=== PATIENT | male | born 2000 | race African-American/Black ===

== ENCOUNTER 2025-03-26 16:34 | Emergency (ER) | payer SELFPAY ==
[2025-03-26 16:48] VITALS: BP 129/80; PULSE 87; RESP 18; TEMP 98.4; BMI 28.0
[2025-03-26] MEDS ORDERED: ALBUTEROL SO4 2.5/IPRATROPIUM 0.5 INH SOL 3 ML VIAL.NEB. NEB ONE (17:22)
[2025-03-26] MEDS ORDERED: DEXAMETHASONE SOD PHOSPHATE 10 MG/1 ML VIAL ONE (17:22)
[2025-03-26] MEDS ORDERED: ACETAMINOPHEN 500 MG TABLET (FP) ONE (17:25)
[2025-03-26] MEDS: DEXAMETHASONE SOD PHOSPHATE 10 MG/1 ML VIAL PO ONE (17:29)
[2025-03-26] MEDS: ALBUTEROL SO4 2.5/IPRATROPIUM 0.5 INH SOL 3 ML VIAL.NEB. NEB ONE (17:30)
[2025-03-26] MEDS: ACETAMINOPHEN 500 MG TABLET (FP) PO ONE (17:30)
== END 2025-03-26 18:23 | disposition home or self-care (01) ==
LOC: JERFT 16:34
PROC: 3E0F7GC Introduction of Other Therapeutic Substance into Respiratory Tract, Via Natural or Artificial Opening (ICD-10-PCS; principal; 2025-03-26)
DX: J45.901 Unspecified asthma with (acute) exacerbation (principal); J22 Unspecified acute lower respiratory infection; R05.9 Cough, unspecified; R07.89 Other chest pain; R06.02 Shortness of breath
CPT/HCPCS: 71046-TC-FY; 99283-25; J1100